=== PATIENT | female | born 1985 | race American Indian/Alaskan Native ===

== ENCOUNTER 2017-05-16 18:50 | Emergency (ER) | payer OTHER ==
[2017-05-16 18:50] VITALS: BMI 40.2
[2017-05-16 19:22] VITALS: TEMP 98.5
--- NOTE | 2017-05-16 19:44 | ED PDOC ---
Arrival/HPI - General Chief Complaint: Abdominal Pain - History of Present Illness Narrative History of Present Illness (Text): 05/16/17 19:40 Pt is a 31 yo F with no significant PMH presents to Emergency department for RLQ pain for the past week. Pt states that pain is intermittent burning pain. Pt denies any precipitating factors and denies any aggravating or alleviating factors. Pt denied chest pain, shortness of breath, nausea, vomiting, diarrhea, fever, chills, headache, dizziness. Past Medical History - Infectious Disease Hx of Infectious Diseases: None - Hematological/Oncological Hx Anemia: Yes - Psychiatric Hx Psychophysiologic Disorder: No Hx Substance Use: No - Surgical History Hx Section: Yes Other/Comment: MYOMECTOMY - Anesthesia Hx Anesthesia: Yes Family/Social History Family/Social History: No Known Family HX Smoking Status: Never Smoked Hx Alcohol Use: No Hx Substance Use: No Allergies/Home Meds Allergies/Adverse Reactions: Allergies No Known Allergies Allergy (Verified 05/16/17 19:15) Review of Systems - Review of Systems Constitutional: Normal Eyes: Normal ENT: Normal Respiratory: Normal Cardiovascular: Normal Gastrointestinal: Abdominal Pain (RLQ) Genitourinary Female: Normal Musculoskeletal: Normal Skin: Normal Neurological: Normal Endocrine: Normal Hemo/Lymphatic: Normal Psychiatric: Normal Physical Exam Vital Signs Temp Pulse Resp BP Pulse Ox 05/17/17 01:35 75 19 136/74 98 05/16/17 19:19 98.5 F 85 16 137/87 99 Temperature: Afebrile Blood Pressure: Normal Pulse: Regular Respiratory Rate: Normal Appearance: Positive for: Well-Appearing Pain Distress: None Mental Status: Positive for: Alert and Oriented X 3 - Systems Exam Head: Present: Atraumatic, Normocephalic Extroacular Muscles: Present: EOMI Mouth: Present: Moist Mucous Membranes Neck: Present: Normal Range of Motion Respiratory/Chest: Present: Clear to Auscultation. No: Accessory Muscle Use, Wheezes, Rales, Rhonchi Cardiovascular: Present: Regular Rate and Rhythm, Normal S1, S2. No: Murmurs, Rub, Gallop Abdomen: Present: Tenderness (RLQ), Normal Bowel Sounds. No: Distention, Peritoneal Signs Upper Extremity: Present: Normal Inspection Lower Extremity: Present: Normal Inspection Neurological: Present: GCS=15 Skin: Present: Warm, Dry, Normal Color Psychiatric: Present: Alert, Oriented x 3 Medical Decision Making ED Course and Treatment: 05/16/17 20:02 Assessment: 31 yo F with no PMH will be evaluated for RLQ abdominal pain. Plan: - CBC - CMP - Lipase - Urine - Urinalysis - Coags - NPO, IVF 05/16/17 21:11 POC check negative. Patient reassessed, RLQ abdominal pain still present and unchanged. CT abd/pelvis with IV contrast ordered. - Lab Interpretations Lab Results: 05/16/17 20:10 05/16/17 20:10 Lab Results 05/16/17 21:10: Urine Color Yellow, Urine Appearance Clear, Urine pH 7.0, Ur Specific [place] 1.020, Urine Protein Negative, Urine Glucose (UA) Negative, Urine Ketones Negative, Urine Blood Negative, Urine Nitrate Negative, Urine Bilirubin Negative, Urine Urobilinogen 0.2, Ur Leukocyte Esterase Negative, Urine HCG, Qual Negative 05/16/17 20:10: Sodium 141, Potassium 4.0, Chloride 101, Carbon Dioxide 29, Anion Gap 16, BUN 8, Creatinine 0.6 L, Est GFR ( Amer) > 60, Est GFR (Non -Af Amer) > 60, Random Glucose 110, Calcium 10.4, Total Bilirubin < 0.1 L, AST 41 H, ALT 33, Alkaline Phosphatase 73, Total Protein 8.1, Albumin 4.4, Globulin 3.7, Albumin/Globulin Ratio 1.2, Lipase 53 05/16/17 20:10: PT 12.9 H, INR 1.13 H, APTT 31.1 05/16/17 20:10: WBC 7.9, RBC 4.83, Hgb 11.0 L, Hct 35.4 L, MCV 73.3 L, MCH 22.8 L, MCHC 31.1, RDW 15.9 H, Plt Count 380, MPV 9.8, Gran % 54.6, Lymph % (Auto) 37.2 H, [place] % (Auto) 4.7, Eos % (Auto) 3.2, Baso % (Auto) 0.3, Gran # 4.33, Lymph # (Auto) 2.9, [place] # (Auto) 0.4, Eos # (Auto) 0.3, Baso # (Auto) 0.02 - RAD Interpretation Radiology Orders: 05/16/17 21:11 ABDOMEN & PELVIS [ABD & PELVIS IV CONTRAST ONLY] [CT] Stat - Medication Orders Current Medication Orders: Discontinued Medications Lactated Ringer's (Lactated Ringer's) 1,000 mls @ 999 mls/hr IV .Q1H1M MARISOL Sodium Chloride (Sodium Chloride 0.9%) 1,000 mls @ 999 mls/hr IV .Q1H1M STA Stop: 05/16/17 21:01 Last Admin: 05/16/17 20:10 Dose: 999 mls/hr eMAR Start Stop Document 05/16/17 20:10 RD (Rec: 05/16/17 20:21 RD [id number]) Intravenous Solution Start Date 05/16/17 Start Time 20:10 End Date 05/16/17 End time 21:10 Total Infusion Time 60 Disposition/Present on Arrival - Present on Arrival Any Indicators Present on Arrival: No History of DVT/PE: No History of Uncontrolled Diabetes: No Urinary Catheter: No History of Decub. 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
[2017-05-16] MEDS ORDERED: Sodium Chloride 0.9% 1,000 ML IV STA (20:01)
[2017-05-16] MEDS ORDERED: Lactated Ringer's 1,000 ML IV SCH (20:15)
[2017-05-16 20:42] LABS: BASO # 0.02 K/mm3 (0.0-2.0); BASO % 0.3 % (0.0-3.0); EOS # 0.3 (0.0-0.7); EOS % 3.2 % (1.5-5.0); GRAN # 4.33 (1.4-6.5); GRAN % 54.6 % (50.0-68.0); LYMPH # 2.9 (1.2-3.4); LYMPH % 37.2 % (22.0-35.0); MEAN CELL VOLUME 73.3 fl (80.0-105.0); MEAN CORPUSCULAR HEMOGLOBIN 22.8 pg (25.0-35.0); MEAN CORPUSCULAR HGB CONC 31.1 g/dl (31.0-37.0); MEAN PLATELET VOLUME 9.8 fl (7.0-11.0); MONO # 0.4 (0.1-0.6); MONO % 4.7 % (1.0-6.0); RBC 4.83 10^6/uL (3.5-6.1); RED CELL DISTRIBUTION WIDTH 15.9 % (11.5-14.5); WHITE BLOOD COUNT 7.9 10^3/ul (4.5-11.0)
[2017-05-16 20:54] LABS: INR 1.13 (0.93-1.08); PARTIAL THROMBOPLASTIN TIME 31.1 Seconds (25.1-36.5); PROTHROMBIN TIME 12.9 SECONDS (9.4-12.5)
[2017-05-16 20:55] LABS: ALB/GLOB RATIO 1.2 (1.1-1.8); ALBUMIN 4.4 g/dL (3.0-4.8); ALT/SGPT 33 U/L (7-56); AST/SGOT 41 U/L (14-36); BLOOD UREA NITROGEN 8 mg/dL (7-21); CALCIUM 10.4 mg/dL (8.4-10.5); GFR AFRICAN-AMERICAN > 60; GFR NON-AFRICAN AMERICAN > 60; LIPASE 53 U/L (23-300)
[2017-05-16 21:31] LABS: URINE BILIRUBIN NEGATIVE (NEGATIVE); URINE BLOOD NEGATIVE (NEGATIVE); URINE GLUCOSE (UA) NEGATIVE (NEGATIVE); URINE LEUKOCYTE ESTERASE NEGATIVE Leu/uL (NEGATIVE); URINE NITRATE NEGATIVE (NEGATIVE); URINE PROTEIN NEGATIVE mg/dL (<30 mg/dL); URINE UROBILINOGEN 0.2 E.U./dL (<1 E.U./dL)
[2017-05-16 21:37] LABS: URINE APPEARANCE CLEAR (CLEAR); URINE COLOR YELLOW (YELLOW)
[2017-05-16 21:39] LABS: HCG,QUALITATIVE URINE NEGATIVE (NEGATIVE)
[2017-05-16] MEDS ORDERED: Iohexol 350 MG/100 ML VIAL ONE (22:47)
--- NOTE | 2017-05-17 00:30 | CT ---
EXAM: CT Abdomen and Pelvis With Intravenous Contrast CLINICAL HISTORY: 31 years old, female; Pain; Abdominal pain; Acute TECHNIQUE: Axial computed tomography images of the abdomen and pelvis with intravenous contrast. All CT scans at this facility use one or more dose reduction techniques, viz.: automated exposure control; ma/kV adjustment per patient size (including targeted exams where dose is matched to indication; i.e. head); or iterative reconstruction technique. Coronal and sagittal reformatted images were created and reviewed. CONTRAST: 100 mL of omni 350 administered intravenously. COMPARISON: No relevant prior studies available. FINDINGS: Lower thorax: No acute findings. ABDOMEN: Liver: Unremarkable. No mass. Gallbladder and bile ducts: No calcified stones. No ductal dilation. Pancreas: No ductal dilation. No mass. Spleen: No splenomegaly. Adrenals: No mass. Kidneys and ureters: No mass. No hydronephrosis. Stomach and bowel: Probable underdistention of LEFT colon. No definite mural thickening. No obstruction. Appendix: Normal caliber. No inflammation. PELVIS: Bladder: Unremarkable. Reproductive: Lobulated uterus with with small calcification. ABDOMEN and PELVIS: Intraperitoneal space: Trace free fluid within pelvis. No free air. Bones/joints: No acute fracture. Soft tissues: Tiny umbilical hernia containing fat. Vasculature: Unremarkable. No aneurysm. Lymph nodes: No pathologically enlarged lymph nodes. IMPRESSION: 1. No definite acute intraabdominal abnormality. 2. Probable fibroid uterus. 3. Incidental/non-acute findings are described above.
--- NOTE | 2017-05-17 00:55 | ED PDOC ---
Physical Exam Vital Signs Temp Pulse Resp BP Pulse Ox 05/16/17 19:19 98.5 F 85 16 137/87 99 Medical Decision Making ED Course and Treatment: 05/16/17 23:00 Case endorsed to me by Dr. Antoine, pending CT Abdomen and Pelvis, re-assessment , and disposition. Pt presented for RLQ abdominal pain. 05/17/17 01:06 Reviewed radiology, CT Abdomen and Pelvis shows: Lower thorax: No acute findings. ABDOMEN: Liver: Unremarkable. No mass. Gallbladder and bile ducts: No calcified stones. No ductal dilation. Pancreas: No ductal dilation. No mass. Spleen: No splenomegaly. Adrenals: No mass. Kidneys and ureters: No mass. No hydronephrosis. Stomach and bowel: Probable underdistention of LEFT colon. No definite mural thickening. No obstruction. Appendix: Normal caliber. No inflammation. PELVIS: Bladder: Unremarkable. Reproductive: Lobulated uterus with with small calcification. ABDOMEN and PELVIS: Intraperitoneal space: Trace free fluid within pelvis. No free air. Bones/joints: No acute fracture. Soft tissues: Tiny umbilical hernia containing fat. Vasculature: Unremarkable. No aneurysm. Lymph nodes: No pathologically enlarged lymph nodes. IMPRESSION: 1. No definite acute intraabdominal abnormality. 2. Probable fibroid uterus. 3. Incidental/non-acute findings are described above. - Lab Interpretations Lab Results: 05/16/17 20:10 05/16/17 20:10 Lab Results 05/16/17 21:10: Urine Color Yellow, Urine Appearance Clear, Urine pH 7.0, Ur Specific [place] 1.020, Urine Protein Negative, Urine Glucose (UA) Negative, Urine Ketones Negative, Urine Blood Negative, Urine Nitrate Negative, Urine Bilirubin Negative, Urine Urobilinogen 0.2, Ur Leukocyte Esterase Negative, Urine HCG, Qual Negative 05/16/17 20:10: Sodium 141, Potassium 4.0, Chloride 101, Carbon Dioxide 29, Anion Gap 16, BUN 8, Creatinine 0.6 L, Est GFR ( Amer) > 60, Est GFR (Non -Af Amer) > 60, Random Glucose 110, Calcium 10.4, Total Bilirubin < 0.1 L, AST 41 H, ALT 33, Alkaline Phosphatase 73, Total Protein 8.1, Albumin 4.4, Globulin 3.7, Albumin/Globulin Ratio 1.2, Lipase 53 05/16/17 20:10: PT 12.9 H, INR 1.13 H, APTT 31.1 05/16/17 20:10: WBC 7.9, RBC 4.83, Hgb 11.0 L, Hct 35.4 L, MCV 73.3 L, MCH 22.8 L, MCHC 31.1, RDW 15.9 H, Plt Count 380, MPV 9.8, Gran % 54.6, Lymph % (Auto) 37.2 H, [place] % (Auto) 4.7, Eos % (Auto) 3.2, Baso % (Auto) 0.3, Gran # 4.33, Lymph # (Auto) 2.9, [place] # (Auto) 0.4, Eos # (Auto) 0.3, Baso # (Auto) 0.02 - RAD Interpretation Radiology Orders: 05/16/17 21:11 ABDOMEN & PELVIS [ABD & PELVIS IV CONTRAST ONLY] [CT] Stat Wire Strander: Radiologist - Medication Orders Current Medication Orders: Lactated Ringer's (Lactated Ringer's) 1,000 mls @ 999 mls/hr IV .Q1H1M MARISOL Discontinued Medications Sodium Chloride (Sodium Chloride 0.9%) 1,000 mls @ 999 mls/hr IV .Q1H1M STA Stop: 05/16/17 21:01 Last Admin: 05/16/17 20:10 Dose: 999 mls/hr eMAR Start Stop Document 05/16/17 20:10 RD (Rec: 05/16/17 20:21 RD [id number]) Intravenous Solution Start Date 05/16/17 Start Time 20:10 End Date 05/16/17 End time 21:10 Total Infusion Time 60 Disposition/Present on Arrival - Present on Arrival Any Indicators Present on Arrival: No History of DVT/PE: No History of Uncontrolled Diabetes: No Urinary Catheter: No History of Decub. 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
[2017-05-17 01:52] VITALS: BP 136/74; PULSE 75; RESP 19; O2SAT 98
== END 2017-05-17 01:35 | disposition home or self-care (01) ==
LOC: ED 18:50
DX: D25.9 Leiomyoma of uterus, unspecified (principal)
CPT/HCPCS: 74177; 80053; 81003; 83690; 84703; 85025; 85610; 85730; 96360; 99283; J7040; Q9967

== ENCOUNTER 2017-11-26 12:13 | Emergency (ER) | payer OTHER ==
[2017-11-26 12:13] VITALS: BMI 40.2
[2017-11-26 12:23] VITALS: RESP 18
--- NOTE | 2017-11-26 12:35 | ED PDOC ---
Arrival/HPI - General Chief Complaint: ENT Problem Time Seen by Provider: 11/26/17 12:24 Historian: Patient - History of Present Illness Narrative History of Present Illness (Text): 11/26/17 12:32 32yo female with no pmhx who present with complaint of left ear pain x 2days. States she took Tylenol without relieve. She reports that she is currently 15weeks . Denies fever, sore throat, any other complaint. Past Medical History - Provider Review Nursing Documentation Reviewed: Yes - Infectious Disease Hx of Infectious Diseases: None - Cardiac Hx Cardiac Disorders: No - Endocrine/Metabolic Hx Diabetes Mellitus Type 2: Yes - Hematological/Oncological Hx Anemia: Yes - Psychiatric Hx Psychophysiologic Disorder: No Hx Substance Use: No - Surgical History Hx Section: Yes Other/Comment: MYOMECTOMY - Anesthesia Hx Anesthesia: Yes Family/Social History - Physician Review Nursing Documentation Reviewed: Yes Family/Social History: Unknown Family HX Smoking Status: Never Smoked Hx Alcohol Use: No Hx Substance Use: No Allergies/Home Meds Allergies/Adverse Reactions: Allergies No Known Allergies Allergy (Verified 05/16/17 19:15) Home Medications: Home Meds Medication Instructions Recorded Confirmed MetFORMIN [glucOPHAGE] 0 mg PO BID 11/26/17 11/26/17 Pnv No.95/Ferrous Fum/Folic AC 1 tab PO DAILY 11/26/17 11/26/17 [] Review of Systems - Physician Review All systems were reviewed & negative as marked: Yes - Review of Systems Constitutional: Normal Eyes: Normal ENT: Other (LEft ear pain) Respiratory: Normal Cardiovascular: Normal Gastrointestinal: Normal Genitourinary Female: Normal Musculoskeletal: Normal Skin: Normal Neurological: Normal Endocrine: Normal Hemo/Lymphatic: Normal Psychiatric: Normal Physical Exam Vital Signs Reviewed: Yes Vital Signs Temp Pulse Resp BP Pulse Ox 11/26/17 12:19 99.4 F 90 18 127/77 99 Temperature: Afebrile Blood Pressure: Normal Pulse: Regular Respiratory Rate: Normal Appearance: Positive for: Well-Appearing, Non-Toxic, Comfortable Pain Distress: None Mental Status: Positive for: Alert and Oriented X 3 - Systems Exam Head: Present: Atraumatic, Normocephalic Pupils: Present: PERRL Extroacular Muscles: Present: EOMI Conjunctiva: Present: Normal Ears: Present: Erythema (Left TM). No: TM Bulging, Fluid, TM Perf Mouth: Present: Moist Mucous Membranes Neck: Present: Normal Range of Motion Respiratory/Chest: Present: Clear to Auscultation, Good Air Exchange. No: Respiratory Distress, Accessory Muscle Use Cardiovascular: Present: Regular Rate and Rhythm, Normal S1, S2. No: Murmurs Abdomen: No: Tenderness, Distention, Peritoneal Signs Back: Present: Normal Inspection Upper Extremity: Present: Normal Inspection. No: Cyanosis, Edema Lower Extremity: Present: Normal Inspection. No: Edema Neurological: Present: GCS=15, CN II-XII Intact, Speech Normal Skin: Present: Warm, Dry, Normal Color. No: Rashes Psychiatric: Present: Alert, Oriented x 3, Normal Insight, Normal Concentration Disposition/Present on Arrival - Present on Arrival Any Indicators Present on Arrival: No History of DVT/PE: No History of Uncontrolled Diabetes: No Urinary Catheter: No History of Decub. Ulcer: No History Surgical Site Infection Following: None - Disposition Have Diagnosis and Disposition been Completed?: Yes Diagnosis: Acute otitis media Disposition: HOME/ ROUTINE Disposition Time: 12:35 Patient Plan: Discharge Condition: STABLE Discharge Instructions (ExitCare): Ear Infections (Otitis Media) Additional Instructions: Follow up with your Doctor/OB Return to ED for any new or worsening symptoms Prescriptions: Amoxicillin 875 mg PO BID #14 tablet Referrals: Soo Scott MD [Medical Doctor] - Follow up with primary
[2017-11-26 13:09] VITALS: PULSE 85; TEMP 98.8; O2SAT 100
[2017-11-26 13:10] VITALS: BP 124/72
== END 2017-11-26 13:07 | disposition home or self-care (01) ==
LOC: ED 12:13
DX: O26.892 Other specified pregnancy related conditions, second trimester (principal); H66.90 Otitis media, unspecified, unspecified ear; Z3A.15 15 weeks gestation of pregnancy